=== PATIENT | male | born 1985 | race Caucasian/White ===

== ENCOUNTER → 2019-08-21 12:53 | Outpatient (BNVA) | payer MEDICAID, SELFPAY | PROVIDERS: Family Provider Family Medicine; Visit Provider Nurse Practitioner | DX: N39.0 Urinary tract infection, site not specified (principal) | CPT/HCPCS: 81003 ==

== ENCOUNTER 2019-08-23 09:26 | Emergency (ER) | payer MEDICAID, SELFPAY ==
--- NOTE | 2019-08-23 09:28 | ED_ITS ---
Entered by Josseline Barrera, acting as scribe for Javi Rodriguez MD HPI - General Adult General: Chief complaint: Back Pain/Injury Stated complaint: RIGHT FLANK PAIN Time Seen by Provider: 08/23/19 09:26 History of Present Illness: HPI narrative: 33 yo male presents with right flank pain. Pt states that he has been urinating blood and has had some green semen. Pt denies having history of kidney stones. MD complaint: right flank pain Onset (ago): day(s) Location: right (flank) Radiation: back Severity: moderate Quality: stabbing Pain Consistency: constant Relieving factors: none Exacerbating factors: none Associated symptoms: Reports no associated symptoms; Deny chest pain, dyspnea, headache(s), nausea, rash or vomiting Review of Systems Const: Denies: fever, chills, body aches or change in appetite Eyes: Denies: blurry vision or eye discomfort ENMT: Denies: throat pain or dental pain Card: Denies: chest pain Resp: Denies: shortness of breath GI: Denies: abdominal pain, nausea, vomiting or diarrhea : Reports: flank pain, painful urination, blood in urine and other (green semen) Musc: Reports: back pain; Denies: neck pain Skin/Breast: Denies: rash Neuro: Denies: headache Psych: Denies: depression Juan Alberto/Lymph: Denies: easy bruising All/Imm: Denies: hives PFS ED PFSH: Social History (Updated 08/21/19 @ 12:50 by Linda Owens LPN) Smoking and tobacco status: former smoker Alcohol intake: never Physical Exam Const: COMMON NORMALS: no apparent distress, oriented x3 and healthy appearing HENMT: COMMON NORMALS: normocephalic and head/scalp atraumatic HEAD & SCALP: normocephalic and atraumatic Eye: COMMON NORMALS: PERRL and EOMs intact bilaterally PUPIL: Yes PERRL Neck/C-Spine: COMMON NORMALS: full ROM and supple Chest: COMMONS NORMALS: inspection of chest normal and palpation of chest normal Resp: COMMON NORMALS: normal respiratory effort, no retractions, no use of accessory muscles and clear to auscultation bilaterally AUSCULTATION: clear to auscultation bilaterally Cardio: COMMON NORMALS: regular rate, regular rhythm and no murmurs RATE: regular rate RHYTHM: regular rhythm GI: COMMON NORMALS: normal to inspection, nondistended, normoactive bowel sounds, soft to palpation, non-tender and no masses PALPATION: Yes soft : BLADDER/KIDNEY EXAM: Yes CVA tenderness Back/Pelvis: GENERAL BACK: Yes CVA tenderness CVA tenderness: right Extremity: COMMON NORMALS: normal to inspection and full ROM Neuro: COMMON NORMALS: oriented x3, moves all extremities and no focal motor deficits Psych: COMMON NORMALS: mental status grossly normal, thought process normal and cooperative THOUGHT PROCESS: normal thought process Skin: COMMON NORMALS: no rashes or lesions noted and no wounds GENERAL SKIN EXAM: no rashes or lesions noted Course Vital Signs: Vital signs: Vital Signs Temperature 97.7 F 08/23/19 09:29 Pulse Rate 84 08/23/19 11:01 Respiratory Rate 15 08/23/19 11:01 Blood Pressure 140/94 08/23/19 11:01 Pulse Oximetry 96 08/23/19 11:01 MDM - General Adult MDM Narrative: Medical decision making narrative: Patient presents here with flank pain and CT shows a likely recently passed kidney stone since he has hydronephrosis. Patient pain is resolved here. He also states that he had some penile discharge and will treat him with Rocephin and azithromycin. Patient is well-appearing here and is stable for discharge. Patient is return if worsening. Lab Data: Labs: Lab Results 08/23/19 Range/Units 09:40 Urine Color Yellow (Yellow) Urine Appearance Clear (CLEAR) Urine pH 6.0 (5-7) Ur Specific Gravit y 1.010 (1.005-1.030) Urine Protein Neg (Negative) Urine Glucose (UA) Norm (Normal) Urine Ketones Negative (Negative) Urine Blood Neg (Negative) Urine Nitrate Negative (Negative) Urine Bilirubin Neg (NEGATIVE) Urine Urobilinogen Norm (Negative) mg/dL Ur Leukocyte Gissel ase Negative (Negative) Urine RBC Rare (0-2) /hpf Urine WBC 0-4 H (0-5) /hpf Ur Squamous Epith Cells None (0-5) Urine Bacteria None (NONE) Imaging Data^: CT Abd/Pel: Attestation: I personally reviewed and interpreted this imaging study as follows: Radiologist's impression: Ordering Provider/Ordering MD: Javi Rodriguez MD Date of Service: 08/23/19 Procedure(s): CT abdomen pelvis wo con [id number] Accession Number(s): [id number] Report Number: [id number] PROCEDURE INFORMATION: Exam: CT Abdomen And Pelvis Without Contrast Exam date and time: 08/23/2019 9:44 AM Age: 33 years old Clinical indication: Abdominal pain; Flank; Right; Additional info: Flank pain TECHNIQUE: Imaging protocol: Computed tomography of the abdomen and pelvis without contrast. Total DLP: 625.18 mGy-cm Radiation optimization: All CT scans at this facility use at least one of these dose optimization techniques: automated exposure control; mA and/or kV adjustment per patient size (includes targeted exams where dose is matched to clinical indication); or iterative reconstruction. COMPARISON: CT Chest/Abdomen/Pelvis w IV* 06/03/2018 2:13 PM FINDINGS: Detailed evaluation of the abdominal and pelvic viscera is somewhat limited in the absence of intravenous contrast. Pleural space: No acute airspace or pleural disease. Liver: Incomplete visualization of the a padded dome. No focal hepatic mass. Gallbladder and bile ducts: Status post cholecystectomy with stable postoperative caliber of the biliary ducts. Pancreas: No pancreatic mass or ductal dilatation. Spleen: Enlarged spleen measuring 13.0 cm in length. Adrenals: Unremarkable adrenals. Kidneys and ureters: Mild hydronephrosis without associated urolithiasis. Stomach and bowel: No significant small bowel dilatation. Copious stool in a pattern of constipation. Diverticula, without pericolonic inflammation. Appendix: No acute appendicitis. Intraperitoneal space: No free fluid. Vasculature: Normal caliber of the abdominal aorta. Lymph nodes: Subcentimeter lymph nodes. Bladder: Minimal bladder wall thickening and lobulated morphology. Reproductive: Unremarkable as visualized. Bones/joints: Transitional vertebra at the lumbosacral junction. Lumbar facet arthropathy. Soft tissues: Small fat containing umbilical hernia. CT/CT abdomen pelvis wo con [id number] IMPRESSION: 1. Mild hydronephrosis without associated urolithiasis. 2. Copious stool in a pattern of constipation. Divertic 3. Additional findings as described above. Discharge Plan Discharge Patient Disposition: Home, Self-Care Clinical Impression: Acute flank pain Constipation Qualifiers: Constipation type: unspecified constipation type Qualified Code(s): K59.00 - Constipation, unspecified Condition: Stable Prescriptions: New EC-Naprosyn 500 mg tablet,delayed release (DR/EC) 500 mg PO BID PRN (Reason: pain) Qty: 20 RF: 0 Miralax 17 gram powder in packet 17 gm PO DAILY PRN (Reason: constipation) Qty: 10 RF: 0 No Action ciprofloxacin HCl [Cipro] 500 mg tablet 500 mg PO BID 7 Days Qty: 14 RF: 0 Discharge Orders: Discharge Order (Routine); Ordered 08/23/19 Ordered By: Javi Rodriguez Referrals: Evan Guidry DO [Family Provider] - DR, [Primary Care Provider] - Discharge Diet: Advance as tolerated Discharge Activity: Resume usual activity Patient Instructions: Abdominal Pain (ED) Discharge Date/Time: 08/23/19 11:58 Coding Level of Care Code ED Coconut Candy Maker for Chg Fwd Exam Comprehensive The documentation recorded by the Bruce clarke Kialy, accurately reflects the service I personally performed and the decisions made by Michael harris Korby, MD Aug 23, 2019 09:26
[2019-08-23 09:29] VITALS: BP 196/136; PULSE 110; RESP 20; TEMP 36.5; O2SAT 92; BMI 27.2
--- NOTE | 2019-08-23 09:35 | CTR_ITS ---
PROCEDURE INFORMATION: Exam: CT Abdomen And Pelvis Without Contrast Exam date and time: 08/23/2019 9:44 AM Age: 33 years old Clinical indication: Abdominal pain; Flank; Right; Additional info: Flank pain TECHNIQUE: Imaging protocol: Computed tomography of the abdomen and pelvis without contrast. Total DLP: 625.18 mGy-cm Radiation optimization: All CT scans at this facility use at least one of these dose optimization techniques: automated exposure control; mA and/or kV adjustment per patient size (includes targeted exams where dose is matched to clinical indication); or iterative reconstruction. COMPARISON: CT Chest/Abdomen/Pelvis w IV* 06/03/2018 2:13 PM FINDINGS: Detailed evaluation of the abdominal and pelvic viscera is somewhat limited in the absence of intravenous contrast. Pleural space: No acute airspace or pleural disease. Liver: Incomplete visualization of the a padded dome. No focal hepatic mass. Gallbladder and bile ducts: Status post cholecystectomy with stable postoperative caliber of the biliary ducts. Pancreas: No pancreatic mass or ductal dilatation. Spleen: Enlarged spleen measuring 13.0 cm in length. Adrenals: Unremarkable adrenals. Kidneys and ureters: Mild hydronephrosis without associated urolithiasis. Stomach and bowel: No significant small bowel dilatation. Copious stool in a pattern of constipation. Diverticula, without pericolonic inflammation. Appendix: No acute appendicitis. Intraperitoneal space: No free fluid. Vasculature: Normal caliber of the abdominal aorta. Lymph nodes: Subcentimeter lymph nodes. Bladder: Minimal bladder wall thickening and lobulated morphology. Reproductive: Unremarkable as visualized. Bones/joints: Transitional vertebra at the lumbosacral junction. Lumbar facet arthropathy. Soft tissues: Small fat containing umbilical hernia. CT/CT abdomen pelvis con [id number] IMPRESSION: 1. Mild hydronephrosis without associated urolithiasis. 2. Copious stool in a pattern of constipation. Divertic 3. Additional findings as described above. Radiation Dose CTDIVOL = (mGy): DLP = 625.18 (mGy-cm)
[2019-08-23 09:44] VITALS: RESP 18; O2SAT 98
[2019-08-23] MEDS: morphine 4 mg/mL SDV 1 mL IVP (09:44)
[2019-08-23] MEDS: ondansetron 2 mg/ML SDV 2 mL 4 MG IVP (09:44)
[2019-08-23] MEDS: ketorolac 30 mg/mL INJ IVP (09:44)
[2019-08-23 09:52] LABS: Bilirubin Urine Neg (NEGATIVE); Blood Urine Neg (Negative); Glucose Urine UA Norm (Normal); Ketones Urine Negative (Negative); Leukocyte Esterase Urine Negative (Negative); Nitrate Urine Negative (Negative); Protein Urine Neg (Negative); Urine Appearance Clear (CLEAR); Urine Color Yellow (Yellow); Urobilinogen Urine Norm (Negative)
[2019-08-23 10:00] LABS: Add Urine Culture? No; RBC Urine RARE /hpf (0-2); WBC Urine 0-4 /hpf (0-5)
--- NOTE | 2019-08-23 10:27 | XR_ITS ---
WS: [id number] XR chest 2V* [id number] REASON FOR EXAM: cough FINDINGS: The heart and mediastinal interfaces were normal. Comparisons were made to June 03, 2018 . The peripheral lungs are clear there is no pneumonia, pleural effusion, pulmonary edema, or mass effe ct. The hilum and apices are normal. No osseous abnormalities. XR/XR chest 2V* [id number] IMPRESSION: No active cardiopulmonary changes.
[2019-08-23 10:29] VITALS: BP 134/83; PULSE 102; RESP 16; O2SAT 100
[2019-08-23] MEDS: azithromycin 250 mg Tablet 1000 MG PO (10:55)
[2019-08-23] MEDS: lidocaine 1% INJ 20 mL IM (10:57)
[2019-08-23] MEDS: cefTRIAXone 1,000 mg SDV 250 MG IM (10:58)
[2019-08-23 11:01] VITALS: BP 140/94; PULSE 84; RESP 15; O2SAT 96
[2019-08-23 11:58] VITALS: BP 137/95; PULSE 88; RESP 16; O2SAT 97
== END 2019-08-23 11:58 | disposition home or self-care (01) ==
PROVIDERS: Emergency Provider Emergency Medicine; Family Provider Family Medicine
DX: R10.9 Unspecified abdominal pain (principal); K59.00 Constipation, unspecified; R36.9 Urethral discharge, unspecified; Z87.891 Personal history of nicotine dependence
CPT/HCPCS: 71046; 74176; 81001; 87491; 87591; 96372; 96374; 96375; 99283; A9270; J0696; J1885; J2001; J2270; J2405; Q0144

== ENCOUNTER 2019-09-10 18:32 | Emergency (ER) | payer MEDICAID, SELFPAY ==
--- NOTE | 2019-09-10 18:34 | USR_ITS ---
PROCEDURE INFORMATION: Exam: US Scrotum Exam date and time: 09/10/2019 6:54 PM Age: 33 years old Clinical indication: Scrotum pain; Patient HX: Right sided pain; Additional info: Testicle pain TECHNIQUE: Imaging protocol: Real-time ultrasound of the scrotum and contents with color Doppler and image documentation. COMPARISON: No relevant prior studies available. FINDINGS: Right testicle: The right testicle measures 4.0 x 2.6 x 2.9 cm with diffusely increased blood flow present. Left testicle: The left testicle measures 3.4 x 2.3 x 2.0 cm with normal blood flow present. Epididymides: The right epididymis is mildly enlarged with increased blood flow. The left epididymis is normal. Scrotum: Small right hydrocele. Small left hydrocele. US/US scrotum [id number] IMPRESSION: 1. Right epididymitis and orchitis.
[2019-09-10 19:05] VITALS: BP 118/79; PULSE 96; RESP 18; TEMP 36.9; O2SAT 98; BMI 27.1
--- NOTE | 2019-09-10 20:54 | ED_ITS ---
Entered by Kaitlyn iVdales, acting as scribe for Javi Rodriguez MD Sep 10, 2019 18:32 HPI - Male Genitourinary General: Chief complaint: Urogenital-Male Stated complaint: testicle pain Time Seen by Provider: 09/10/19 20:49 Source: patient and family History of Present Illness: HPI Narrative: 33 y/o male presents to the ED with complaint of right testicle swelling and pain. Pt states this started last night and has progressively gotten worse. He reports lifting a lot of weight at work recently. He has also had green discharge from his penis that he has been on medication for. Complaint: testicle pain, testicle swelling and penile discharge Onset (ago): day(s) Duration: progressively worsening Location: penis and right testicle Radiation: right inguinal region Severity: moderate Relieving factors: none Exacerbating factors: movement Context: lifting Associated symptoms: Reports discharge and swelling; Deny dysuria, nausea or vomiting Review of Systems Const: Denies: fever, chills, body aches or change in appetite Eyes: Denies: blurry vision or eye discomfort ENMT: Denies: throat pain or dental pain Card: Denies: chest pain Resp: Denies: shortness of breath GI: Denies: nausea, vomiting or diarrhea : Reports: genital pain, penile discharge and other (right testicle swelling); Denies: painful urination Musc: Denies: neck pain or back pain Neuro: Denies: headache Psych: Denies: depression Juan Alberto/Lymph: Denies: easy bruising All/Imm: Denies: hives [facility] ED PFSH: Social History (Updated 08/21/19 @ 12:50 by Linda Owens LPN) Smoking and tobacco status: former smoker Alcohol intake: never Physical Exam Const: COMMON NORMALS: oriented x3 HENMT: COMMON NORMALS: normocephalic and head/scalp atraumatic HEAD & SCALP: normocephalic and atraumatic Eye: COMMON NORMALS: PERRL and EOMs intact bilaterally PUPIL: Yes PERRL Neck/C-Spine: COMMON NORMALS: full ROM and supple Chest: COMMONS NORMALS: inspection of chest normal and palpation of chest normal Resp: COMMON NORMALS: normal respiratory effort, no retractions, no use of accessory muscles and clear to auscultation bilaterally AUSCULTATION: clear to auscultation bilaterally Cardio: COMMON NORMALS: regular rate, regular rhythm and no murmurs RATE: regular rate RHYTHM: regular rhythm GI: COMMON NORMALS: normal to inspection, nondistended, normoactive bowel sounds, soft to palpation and no masses PALPATION: Yes soft and Yes tender (right flank, right testicle) Details: RLQ : BLADDER/KIDNEY EXAM: Yes CVA tenderness TESTES: Yes testicular swelling and Yes testicular tenderness Back/Pelvis: GENERAL BACK: Yes CVA tenderness CVA tenderness: right Extremity: COMMON NORMALS: normal to inspection and full ROM Neuro: COMMON NORMALS: oriented x3, moves all extremities and no focal motor deficits Psych: COMMON NORMALS: mental status grossly normal, thought process normal and cooperative THOUGHT PROCESS: normal thought process Skin: COMMON NORMALS: no wounds Course Vital Signs: Vital signs: Vital Signs Temperature 98.4 F 09/10/19 19:05 Pulse Rate 106 H 09/10/19 21:29 Respiratory Rate 18 09/10/19 19:05 Blood Pressure 140/83 09/10/19 21:29 Pulse Oximetry 99 09/10/19 21:29 MDM - Male MDM Narrative: Medical decision making narrative: Gama presents here with right testicle pain and ultrasound shows an epididymitis. Patient has no signs of appendicitis on CT scan. Patient given Rocephin and azithromycin here and will place him on doxycycline for 10 days. He is to follow-up with his primary care doctor in 3 to 5 days. Patient is to return to the ER if worsening. Will prescribe him hydrocodone for pain for home. Patient understands and agrees the plan. Lab Data: Labs: Lab Results 09/10/19 09/10/19 09/10/19 Range/Units 19:33 21:05 21:05 WBC 22.4 H (4.0-10.0) 10^3/ uL RBC 4.92 (4.1-5.3) 10^6/u L Hgb 13.3 (11.7-16.6) g/dL Hct 40.8 L (42.0-52.0) % MCV 82.9 (80-94) fL MCH 27.0 L (28.0-34.0) pg MCHC 32.6 (30.0-36.0) g/dL RDW 13.3 (12.1-15.1) % Plt Count 387 (130-400) 10^3/c mm MPV 9.9 (7.4-10.4) fL Neut % (Auto) 84.7 % Lymph % (Auto) 8.8 % [place] % (Auto) 5.8 % Eos % (Auto) 0.1 % Baso % (Auto) 0.2 % Neut # (Auto) 19.0 H (1.8-7.7) 10^3/u L Lymph # (Auto) 2.0 (0.8-4.8) 10^3/u L [place] # (Auto) 1.3 H (0.2-0.9) 10^3/u L Eos # (Auto) 0.0 (0.0-0.8) 10^3/u L Baso # (Auto) 0.0 (0.0-0.1) 10^3/u L Nucleated RBC % (a uto) 0 % Nucleated RBCs # 0.0 /100WBC Sodium 134 L (136-145) mmol/L Potassium 3.8 (3.5-5.1) mmol/L Chloride 97 L (98-107) mmol/L Carbon Dioxide 25 (22-29) mmol/L Anion Gap 15.8 (5-19) BUN 12 (6-20) mg/dL Creatinine 1.0 (0.7-1.2) mg/dL GFR Calculation 87.2 L (90-130) mL/min Glucose 129 H (65-115) mg/dL Calculated Osmolal ity 276 L (285-295) mOsm/k g Calcium 9.4 (8.5-10.5) mg/dL Urine Color Yellow (Yellow) Urine Appearance Clear (CLEAR) Urine pH 7 (5-7) Ur Specific Gravit y 1.005 (1.005-1.030) Urine Protein Neg (Negative) Urine Glucose (UA) Norm (Normal) Urine Ketones Negative (Negative) Urine Blood Neg (Negative) Urine Nitrate Negative (Negative) Urine Bilirubin Neg (NEGATIVE) Urine Urobilinogen Norm (Negative) mg/dL Ur Leukocyte Gissel ase 2+ H (Negative) Urine RBC 0-4 H (0-2) /hpf Urine WBC 25-40 H (0-5) /hpf Ur Squamous Epith Cells 0-4 H (0-5) Ur Transition Epit h Cell None /hpf Urine Bacteria Trace (NONE) Imaging Data: US: Radiologist's impression: Patient: Yoni Roberson #: [id number] : 1985Acct#:[id number] Age/Sex: 33 / MADM Date: 09/10/19 Loc: ERRoom/Bed: Attending Dr: Ordering Provider/Ordering MD: Javi Rodriguez MD Date of Service: 09/10/19 Procedure(s): US scrotum [id number] Accession Number(s): [id number] Report Number: [id number] PROCEDURE INFORMATION: Exam: US Scrotum Exam date and time: 09/10/2019 6:54 PM Age: 33 years old Clinical indication: Scrotum pain; Patient HX: Right sided pain; Additional info: Testicle pain TECHNIQUE: Imaging protocol: Real-time ultrasound of the scrotum and contents with color Doppler and image documentation. COMPARISON: No relevant prior studies available. FINDINGS: Right testicle: The right testicle measures 4.0 x 2.6 x 2.9 cm with diffusely increased blood flow present. Left testicle: The left testicle measures 3.4 x 2.3 x 2.0 cm with normal blood flow present. Epididymides: The right epididymis is mildly enlarged with increased blood flow. The left epididymis is normal. Scrotum: Small right hydrocele. Small left hydrocele. US/US scrotum [id number] IMPRESSION: 1. Right epididymitis and orchitis. CT Abd/Pel: Radiologist's impression: Ordering MD: Javi Rodriguez MD Date of Service: 09/10/19 Procedure(s): CT abdomen pelvis w con* [id number] Accession Number(s): [id number] Report Number: [id number] PROCEDURE INFORMATION: Exam: CT Abdomen And Pelvis With Contrast Exam date and time: 09/10/2019 9:51 PM Age: 33 years old Clinical indication: Abdominal pain; Localized; Right lower quadrant (rlq); Additional info: Abd pain TECHNIQUE: Imaging protocol: Computed tomography of the abdomen and pelvis with intravenous contrast. Total DLP: 712.98 mGy-cm Radiation optimization: All CT scans at this facility use at least one of these dose optimization techniques: automated exposure control; mA and/or kV adjustment per patient size (includes targeted exams where dose is matched to clinical indication); or iterative reconstruction. Contrast material: OMNI 300; Contrast volume: 95 ml; Contrast route: LT AC; COMPARISON: CT abdomen pelvis wo con [id number] 08/23/2019 10:12 AM FINDINGS: Liver: Normal. No mass. Gallbladder and bile ducts: Cholecystectomy. The bile ducts are normal. Pancreas: Normal. No ductal dilation. Spleen: Normal. No splenomegaly. Adrenals: Normal. No mass. Kidneys and ureters: Normal. No hydronephrosis. Stomach and bowel: Mild fecalization of the distal small bowel. No obstruction. The colon is unremarkable. The stomach is unremarkable. Appendix: The appendix is normal. Intraperitoneal space: Unremarkable. No free air. No significant fluid collection. Vasculature: Unremarkable. No abdominal aortic aneurysm. Lymph nodes: Unremarkable. No enlarged lymph nodes. Bladder: Unremarkable as visualized. Reproductive: Unremarkable as visualized. Bones/joints: Unremarkable. No acute fracture. Soft tissues: Unremarkable. CT/CT abdomen pelvis w con* [id number] IMPRESSION: 1. No acute abnormality identified in the abdomen or pelvis. 2. Mild fecalization in the distal small bowel is nonspecific but likely indicates delayed small bowel transit. Discharge Plan Discharge Patient Disposition: Home, Self-Care Clinical Impression: Epididymitis Condition: Stable Prescriptions: [place] 5-325 mg tablet 1 tab PO Q6H PRN (Reason: pain) Qty: 14 RF: 0 doxycycline hyclate 100 mg capsule 100 mg PO BID 10 Days Qty: 20 RF: 0 No Action naproxen [EC-Naprosyn] 500 mg tablet,delayed release (DR/EC) 500 mg PO BID PRN (Reason: pain) Qty: 20 RF: 0 vitamin B complex Tablet 1 tab PO DAILY RF: 0 loratadine 10 mg Tablet 10 mg PO DAILY RF: 0 Discharge Orders: Discharge Order (Routine); Ordered 09/10/19 Ordered By: Javi Rodriguez Referrals: Evan Guidry DO [Primary Care Provider] - 4-7 days Discharge Diet: Advance as tolerated Discharge Activity: Resume usual activity Patient Instructions: Epididymitis (ED) Coding Level of Care Code ED Manager Foreign for g Fwd Exam Comprehensive The documentation recorded by the Flash clarke Ashley, accurately reflects the service I personally performed and the decisions made by me, Javi Rodriguez MD Sep 10, 2019 18:32
[2019-09-10 21:00] VITALS: O2SAT 99
[2019-09-10] MEDS: morphine 4 mg/mL SDV 1 mL 8 MG IM (21:07)
[2019-09-10] MEDS: azithromycin 250 mg Tablet 1000 MG PO (21:07)
[2019-09-10 21:16] LABS: Add Urine Microscopic? YES; Bilirubin Urine Neg (NEGATIVE); Blood Urine Neg (Negative); Glucose Urine UA Norm (Normal); Ketones Urine Negative (Negative); Leukocyte Esterase Urine 2+ (Negative); Nitrate Urine Negative (Negative); Protein Urine Neg (Negative); Specific Gravity, Urine 1.005 (1.005-1.030); Urine Appearance Clear (CLEAR); Urine Color Yellow (Yellow); Urobilinogen Urine Norm (Negative); pH Urine 7 (5-7)
[2019-09-10 21:19] LABS: RBC Urine 0-4 /hpf (0-2)
[2019-09-10 21:20] LABS: Add Urine Culture? Yes; Bacteria Urine TRACE; Squamous Epithelial Cell Urine 0-4 (0-5); WBC Urine 25-40 /hpf (0-5)
[2019-09-10 21:25] LABS: Basophils % 0.2 %; Eosinophils % 0.1 %; Hematocrit 40.8 % (42.0-52.0); Hemoglobin 13.3 g/dL (11.7-16.6); Lymphocytes % 8.8 %; Mean Corpuscular HGB Conc 32.6 g/dL (30.0-36.0); Mean Corpuscular Volume 82.9 fL (80-94); Mean Platelet Volume 9.9 fL (7.4-10.4); Monocytes # 1.3 10^3/uL (0.2-0.9); Monocytes % 5.8 %; Neutrophils % 84.7 %; Nucleated Red Blood Cells % 0 %; Platelet Count 387 10^3/cmm (130-400); Red Blood Count 4.92 10^6/uL (4.1-5.3); Red Cell Distribution Width 13.3 % (12.1-15.1); White Blood Count 22.4 10^3/uL (4.0-10.0)
[2019-09-10 21:29] VITALS: BP 140/83; PULSE 106; O2SAT 99
[2019-09-10 21:38] LABS: Anion Gap 15.8 (5-19); Blood Urea Nitrogen 12 mg/dL (6-20); Calcium 9.4 mg/dL (8.5-10.5); Carbon Dioxide 25 mmol/L (22-29); Chloride 97 mmol/L (98-107); Glomerular Filtration Rate 87.2 mL/min (90-130); Glucose 129 mg/dL (65-115); Osmolality Calculated 276 mOsm/kg (285-295); Potassium 3.8 mmol/L (3.5-5.1); Sodium 134 mmol/L (136-145)
--- NOTE | 2019-09-10 21:49 | CTR_ITS ---
PROCEDURE INFORMATION: Exam: CT Abdomen And Pelvis With Contrast Exam date and time: 09/10/2019 9:51 PM Age: 33 years old Clinical indication: Abdominal pain; Localized; Right lower quadrant (rlq); Additional info: Abd pain TECHNIQUE: Imaging protocol: Computed tomography of the abdomen and pelvis with intravenous contrast. Total DLP: 712.98 mGy-cm Radiation optimization: All CT scans at this facility use at least one of these dose optimization techniques: automated exposure control; mA and/or kV adjustment per patient size (includes targeted exams where dose is matched to clinical indication); or iterative reconstruction. Contrast material: OMNI 300; Contrast volume: 95 ml; Contrast route: LT AC; COMPARISON: CT abdomen pelvis wo con [id number] 08/23/2019 10:12 AM FINDINGS: Liver: Normal. No mass. Gallbladder and bile ducts: Cholecystectomy. The bile ducts are normal. Pancreas: Normal. No ductal dilation. Spleen: Normal. No splenomegaly. Adrenals: Normal. No mass. Kidneys and ureters: Normal. No hydronephrosis. Stomach and bowel: Mild fecalization of the distal small bowel. No obstruction. The colon is unremarkable. The stomach is unremarkable. Appendix: The appendix is normal. Intraperitoneal space: Unremarkable. No free air. No significant fluid collection. Vasculature: Unremarkable. No abdominal aortic aneurysm. Lymph nodes: Unremarkable. No enlarged lymph nodes. Bladder: Unremarkable as visualized. Reproductive: Unremarkable as visualized. Bones/joints: Unremarkable. No acute fracture. Soft tissues: Unremarkable. CT/CT abdomen pelvis w con* [id number] IMPRESSION: 1. No acute abnormality identified in the abdomen or pelvis. 2. Mild fecalization in the distal small bowel is nonspecific but likely indicates delayed small bowel transit. Radiation Dose CTDIVOL = (mGy): DLP = 712.98 (mGy-cm)
--- NOTE | 2019-09-10 22:01 | PC.NURSE ---
pt off unit to CT by stretcher with tech
[2019-09-10] MEDS: iohexol 300 mg/mL 100 mL Btl IV (22:04)
[2019-09-10] MEDS: cefTRIAXone 1,000 MG in sodium chloride 0.9% (plus) 100 ML 100 MG IV (22:15)
[2019-09-10] MEDS: diphenhydrAMINE 50 mg/mL SDV 1mL IVP (22:15)
[2019-09-10] MEDS: metoclopramide 5 mg/mL SDV 2 mL 10 MG IVP (22:15)
[2019-09-10 22:38] VITALS: BP 140/83; PULSE 126; O2SAT 99
== END 2019-09-10 22:38 | disposition home or self-care (01) ==
PROVIDERS: Emergency Provider Emergency Medicine; Family Provider Family Medicine; PCP Family Medicine
DX: N45.1 Epididymitis (principal); Z87.891 Personal history of nicotine dependence
CPT/HCPCS: 12345; 36415; 74177; 76870; 80048; 81001; 85025; 87077; 87086; 87186; 87491; 87591; 96365; 96375; 99283; 99284; J0696; J1200; J2270; J2765; J7050; Q0144; Q9967

== ENCOUNTER 2019-09-11 04:42 | Emergency (ER) | payer MEDICAID, SELFPAY ==
--- NOTE | 2019-09-11 04:55 | ED_ITS ---
Entered by Kaitlyn Vidales, acting as scribe for Javi Rodriguez MD Sep 11, 2019 04:42 HPI - Male Genitourinary General: Chief complaint: Nausea/Vomiting/Diarrhea Stated complaint: abd pain Time Seen by Provider: 09/11/19 04:46 Source: patient and family Mode of arrival: ambulatory History of Present Illness: HPI Narrative: 33 y/o male presents to the ED with complaint of green penile discharge and nausea. Pt was seen here earlier today for testicle swelling and pain. He was given pain medication upon discharge. He states he has had multiple episodes of vomiting and has had epigastric normal pain since then. Denies any worsening or improving factors. MD Complaint: penile discharge and other (Nausea) Onset (ago): hour(s) Duration: constant Location: penis Radiation: right inguinal region Severity: similar to previous episodes Exacerbating factors: movement Associated symptoms: Reports nausea; Deny dysuria or vomiting Review of Systems Const: Denies: fever, chills, body aches or change in appetite Eyes: Denies: blurry vision or eye discomfort ENMT: Denies: throat pain or dental pain Card: Denies: chest pain Resp: Denies: shortness of breath GI: Reports: abdominal pain and nausea; Denies: vomiting or diarrhea : Reports: genital pain, penile discharge and testicular pain; Denies: painful urination Musc: Denies: neck pain or back pain Skin/Breast: Denies: rash Neuro: Denies: headache Psych: Denies: depression Juan Alberto/Lymph: Denies: easy bruising All/Imm: Denies: hives [facility] ED PFSH: Social History (Updated 08/21/19 @ 12:50 by Linda Owens LPN) Smoking and tobacco status: never smoked Alcohol intake: never Physical Exam Const: COMMON NORMALS: oriented x3 HENMT: COMMON NORMALS: normocephalic and head/scalp atraumatic HEAD & SCALP: normocephalic and atraumatic Eye: COMMON NORMALS: PERRL and EOMs intact bilaterally PUPIL: Yes PERRL Neck/C-Spine: COMMON NORMALS: full ROM and supple Chest: COMMONS NORMALS: inspection of chest normal and palpation of chest normal Resp: COMMON NORMALS: normal respiratory effort, no retractions, no use of accessory muscles and clear to auscultation bilaterally AUSCULTATION: clear to auscultation bilaterally Cardio: COMMON NORMALS: regular rate, regular rhythm and no murmurs RATE: regular rate RHYTHM: regular rhythm GI: COMMON NORMALS: normal to inspection, nondistended, normoactive bowel sounds, soft to palpation, non-tender and no masses PALPATION: Yes soft and Yes tender Extremity: COMMON NORMALS: normal to inspection and full ROM Neuro: COMMON NORMALS: oriented x3, moves all extremities and no focal motor deficits Psych: COMMON NORMALS: mental status grossly normal, thought process normal and cooperative THOUGHT PROCESS: normal thought process Skin: COMMON NORMALS: no rashes or lesions noted and no wounds GENERAL SKIN EXAM: no rashes or lesions noted Course Vital Signs: Vital signs: Vital Signs Temperature 98.0 F 09/11/19 05:03 Pulse Rate 106 H 09/11/19 05:03 Respiratory Rate 16 09/11/19 05:03 Blood Pressure 138/78 09/11/19 05:03 Pulse Oximetry 98 09/11/19 05:03 MDM - Male [facility] Narrative: Medical decision making narrative: Number presents here with vomiting likely from pain meds given to him earlier today. He still having some abdominal pain. Patient's lab work earlier and CT scan of his abdomen are no rmal and he has no signs of acute surgical abdomen. Will prescribe patient Zofran for home. Patient is stable for discharge and return if worsening. Discharge Plan Discharge Patient Disposition: Home, Self-Care Clinical Impression: Epididymitis Vomiting Qualifiers: Vomiting type: unspecified Vomiting Intractability: non-intractable Nausea presence: with nausea Qualified Code(s): R11.2 - Nausea with vomiting, unspecified Condition: Stable Prescriptions: New Zofran 4 mg tablet 4 mg PO QID PRN (Reason: nausea and vomiting) Qty: 14 RF: 0 No Action naproxen [EC-Naprosyn] 500 mg tablet,delayed release (DR/EC) 500 mg PO BID PRN (Reason: pain) Qty: 20 RF: 0 vitamin B complex Tablet 1 tab PO DAILY RF: 0 loratadine 10 mg Tablet 10 mg PO DAILY RF: 0 [place] 5-325 mg tablet 1 tab PO Q6H PRN (Reason: pain) Qty: 14 RF: 0 doxycycline hyclate 100 mg capsule 100 mg PO BID 10 Days Qty: 20 RF: 0 Discharge Orders: Discharge Order (Routine); Ordered 09/11/19 Ordered By: Javi Rodriguez Referrals: Evan Guidry, [Primary Care Provider] - Discharge Diet: Advance as tolerated Discharge Activity: Resume usual activity Patient Instructions: Acute Nausea and Vomiting (ED) Coding Level of Care Code ED [employer] for Chg Fwd Exam Comprehensive The documentation recorded by the Flash clarke Ashley, accurately reflects the service I personally performed and the decisions made by Michael harris Korby, MD Sep 11, 2019 04:42
[2019-09-11 04:57] VITALS: BMI 27.1
[2019-09-11 05:03] VITALS: BP 138/78; PULSE 106; RESP 16; TEMP 36.7; O2SAT 98
[2019-09-11] MEDS: diphenhydrAMINE 50 mg/mL SDV 1mL IM (05:18)
[2019-09-11] MEDS: HYDROmorphone 1 mg/mL INJ 1 mL IM (05:19)
[2019-09-11] MEDS: metoclopramide 5 mg/mL SDV 2 mL 10 MG IM (05:19)
[2019-09-11 05:51] VITALS: BP 102/58; PULSE 88; RESP 16; O2SAT 97
== END 2019-09-11 05:53 | disposition home or self-care (01) ==
PROVIDERS: Emergency Provider Emergency Medicine; Family Provider Family Medicine; PCP Family Medicine
DX: N45.1 Epididymitis (principal)
CPT/HCPCS: 12345; 96372; 99281; 99283; J1170; J1200; J2765

== ENCOUNTER 2019-09-11 15:51 | Emergency (ER) | payer MEDICAID, SELFPAY ==
[2019-09-11 15:53] VITALS: BP 122/78; PULSE 108; RESP 16; TEMP 36.7; O2SAT 95; BMI 27.1
== END 2019-09-11 16:50 | disposition left against medical advice (07) ==
LOC: ER 16:26
PROVIDERS: Emergency Provider Emergency Medicine; Family Provider Family Medicine; PCP Family Medicine
DX: N50.811 Right testicular pain (principal); N50.89 Other specified disorders of the male genital organs; Z53.21 Procedure and treatment not carried out due to patient leaving prior to being seen by health care provider
CPT/HCPCS: 99281